=== PATIENT | female | born 1985 | race Caucasian/White ===

== ENCOUNTER 2016-12-09 17:04 | Emergency (ER) | payer OTHER ==
[2016-12-09 17:18] VITALS: BP 118/71; PULSE 88; RESP 17; TEMP 98.6
--- NOTE | 2016-12-09 17:36 | ED ---
URI HPI - General Chief Complaint: Upper Respiratory Infection Stated Complaint: Poss pneumonia Time Seen by Provider: 12/09/16 17:22 Source: patient, RN notes reviewed, old records reviewed Mode of arrival: wheelchair Limitations: no limitations - History of Present Illness Initial Comments: Patient is a 31-year-old female with chief complaint of left sided rib pain. Patient reports that she is concerned she possibly has pneumonia. She reports that she had similar pain as the stitches diagnosed approximately 2 months ago. She also reports that she's noticed a lump over her left breast. She reports that she'll be sitting there she'll have an occasional shooting pain to the lumbar the left breast which then causes the chest cavity dull ache afterwards. Patient reports that this will only occur for approximately 30 seconds. She denies any other symptoms. She denies any shortness of breath, dizziness, nausea or vomiting. She denies any sweating. She reports that she is a occasional smoker. She denies any history of family heart disease. She denies history of breast cancer. - Related Data Previous Rx's Medication Instructions Recorded Azithromycin [Zithromax Z-pack] 250 mg PO DIRECTED #6 tab 12/09/16 Allergies Allergy/AdvReac Type Severity Reaction Status Date / Time No Known Allergies Allergy Verified 12/09/16 17:44 Review of Systems ROS Statement: Those systems with pertinent positive or pertinent negative responses have been documented in the HPI. ROS Other: All systems not noted in ROS Statement are negative. Past Medical History Past Medical History: No Reported History History of Any Multi-Drug Resistant Organisms: None Reported Past Surgical History: No Surgical Hx Reported Past Psychological History: No Psychological Hx Reported Smoking Status: Current every day smoker Past Alcohol Use History: None Reported Past Drug Use History: None Reported General Exam Limitations: no limitations General appearance: alert, in no apparent distress Head exam: Present: atraumatic, normocephalic, normal inspection Eye exam: Present: normal appearance, PERRL, EOMI. Absent: scleral icterus, conjunctival injection, periorbital swelling ENT exam: Present: normal exam, mucous membranes moist Neck exam: Present: normal inspection. Absent: tenderness, meningismus, lymphadenopathy Respiratory exam: Present: normal lung sounds bilaterally, other (3cm lump of left breast. evidence of a 4 cm by 4 cm cyst of right breast at the 12 oclock position. ). Absent: respiratory distress, wheezes, rales, rhonchi, stridor Cardiovascular Exam: Present: regular rate, normal rhythm, normal heart sounds. Absent: systolic murmur, diastolic murmur, rubs, gallop, clicks GI/Abdominal exam: Present: soft, normal bowel sounds. Absent: distended, tenderness, guarding, rebound, rigid Extremities exam: Present: normal inspection, full ROM, normal capillary refill. Absent: tenderness, pedal edema, joint swelling, calf tenderness Left Lower Leg exam: Present: normal inspection, full ROM Ankle exam: Present: normal inspection, full ROM Foot/Toe exam: Present: normal inspection, tenderness (tender), swelling (mild swelling over 3-4 metatarsal) Neurovascular tendon exam: Present: no vascular compromise Gait: observed and normal (over the 3-5 metatarsal) Back exam: Present: normal inspection Course Vital Signs 12/09/16 17:15 Temperature 98.6 F Pulse Rate 88 Respiratory 17 Rate Blood Pressure 118/71 O2 Sat by Pulse 100 Oximetry Medical Decision Making - Medical Decision Making Patient is a 31 year old female with chief compliant of pain from left breast lump that will cause a shooting pain and a dull ache in her chest for 30 seconds. Patient ekg are normal without any abnormalities. CXR shows right upper lobe pneumonia. Given patients breast lump we will refer her to get a mammogram and follow up with PCP. Patient understands treatment plan and will comply. Return parameters discussed. Patient also will be placed on Zpak for cxr finding. 12/09/16 23:04 EKG shows normal sinus rhythm. There is evidence of possible left atrial enlargement. Ventricularly of 77 bpm. A 132 ms. QRS yazdanism 76 ms. QT/QTc is 412/466 multiple times. No evidence of ST elevation or T-wave inversion. No evidence of atrial or ventricular arrhythmias. - Radiology Data Radiology results: report reviewed CXR shows rounded pneumonia on right upper lobe. This is consistent with previous chest xray. Disposition Clinical Impression: Left sided chest pain, Breast lump in female, Pneumonia Disposition: HOME SELF-CARE Condition: Good Instructions: Breast Mass (ED) Additional Instructions: Patient advised that she needs follow-up with a primary care provider. Patient advised to return to the [facility] if any alarming signs or symptoms occur. Complete mammogram as directed. Prescriptions: Azithromycin [Zithromax Z-pack] 250 mg PO DIRECTED #6 tab Referrals: Ritu Gonzales MD [REFERRING] - 1-2 days Time of Disposition: 18:54
--- NOTE | 2016-12-09 18:16 | XR ---
EXAMINATION TYPE: XR chest 2V DATE OF EXAM: 12/09/2016 5:49 PM COMPARISON: Prior chest x-ray 25 October 2016 HISTORY: Chest pain TECHNIQUE: Frontal and lateral views of the chest are obtained on 3 images. FINDINGS: Similar appearance. Vague area of increased density is present in the right upper lobe. No other interval change. IMPRESSION: Difficult to exclude a right upper lobe pneumonia, follow-up is recommended.
== END 2016-12-09 19:07 | disposition home or self-care (01) ==
LOC: EC 17:04
DX: J18.9 Pneumonia, unspecified organism (principal); N60.01 Solitary cyst of right breast; M79.89 Other specified soft tissue disorders; F17.200 Nicotine dependence, unspecified, uncomplicated
CPT/HCPCS: 71020; 93005; 99283

== ENCOUNTER → 2016-12-15 | Outpatient (CLI) | payer OTHER ==
--- NOTE | 2016-12-15 10:10 | MM ---
Reason for exam: clinical finding. Physical Findings: Nurse did not find any significant physical abnormalities on exam. [facility] Diagnostic Mammo w CAD ANDREWS Bilateral CC and MLO view(s) were taken. There are scattered fibroglandular densities. Partially imaged mass upper right breast far posteriorly adjacent to chest wall. These results were verbally communicated with the patient and result sheet given to the patient on 12/15/16. ASSESSMENT: Incomplete: need additional imaging evaluation, BI-RAD 0 RECOMMENDATION: Ultrasound of both breasts. Manage patient on a clinical basis.
--- NOTE | 2016-12-15 10:14 | USB ---
Reason for exam: additional evaluation requested from abnormal screening. US Breast Limited BILAT Right breast ultrasound demonstrates a 4.5 x 1.7 x 3.6cm questionable lipoma for which a tissue biopsy is recommended. Left breast ultrasound demonstrates no cystic or solid lesion seen. These results were verbally communicated with the patient and result sheet given to the patient on 12/15/16. ASSESSMENT: Suspicious, BI-RAD 4 RECOMMENDATION: Surgical consultation of the right breast. Called Dr. Olivarez with mammographic findings and has scheduled an appointment for the patient for 12/18/16 at 10:[address] Sofia. PRELIMINARY REPORT CALLED AND FAXED TO DR. SOFIA ON 12/15/16 AT 300/TP.
== END | disposition home or self-care (01) ==
LOC: RADMAMWWP 08:38
PROVIDERS: ATTEND Emergency Medicine
DX: N63 Unspecified lump in breast (principal)
CPT/HCPCS: 76642; G0204

== ENCOUNTER 2018-01-14 23:30 | Outpatient (CLI) | payer OTHER ==
[2018-01-15 01:53] VITALS: BP 122/73; PULSE 96; RESP 16; TEMP 96.7
--- NOTE | 2018-01-27 16:46 | P.MSEPDOC ---
Presenting Problems - Arrival Data Date of Arrival on Unit: 01/14/18 Time of Arrival on Unit: 23:32 Mode of Transport: Wheelchair - Complaint OB-Reason for Admission/Chief Complaint: Possible Onset of Labor, Pain Comment: "uncomfortable," "pelvic pressure," lost her mucus membrane last week Medical History - Information : 4 Para: 3 Term: 1 : 2 Abortions: Spontaneous or Elective: 0 Number of Living Children: 3 - Gestational Age Gestational Age by SELENA (wks/days): 38 Weeks and 3 Days - History Complications: GBS+, Smoker Review of Systems - Review of Systems Constitutional: No problems Breast: No problems ENT: No problems Cardiovascular: No problems Respiratory: No problems Gastrointestinal: No problems Genitourinary: No problems Musculoskeletal: No problems Neurological: No problems Skin: No problems Vital Signs - Temperature Temperature: 96.7 F Temperature Source: Temporal Artery Scan - Pulse Right Pulse Rate: 96 Pulse Assessment Method: Pulse Oximetry - Respirations Respiratory Rate: 16 O2 Sat by Pulse Oximetry: 97 - Blood Pressure Right Arm Blood Pressure: 122/73 Blood Pressure Mean: 89 Blood Pressure Source: Automatic Cuff Medical Screen Scoring (Pre) - Cervical Exam Dilation: 4-7 cm = 2 Membranes: Intact - Uterine Contractions Frequency: > 5 minutes apart = 1 Duration: > 40 seconds = 2 Intensity: N/A - Maternal Vital Signs Maternal Temperature: N/A Maternal Blood Pressure: N/A Signs of Preeclampsia: N/A Maternal Respirations: N/A - Pain Assessment Pain Location and Character: Back, Abdomen Pain Scale Used: Numeric (1 - 10) Pain Intensity: 6 Pain Management Goal: 3 Pain Description: *Acute, Sore Pain Frequency: Intermittent Pain Duration: 4 Pain Duration Units: Hours Pain Behavior: Vocalization Pain Aggravating Factors: None Pharmacological Interventions: PRN Medication Non-Pharmacological Interventions: Position/Reposition - Assessment Baseline FHR: 130 Heart Rate - NICHD Category: Category I (Normal) = 0 NST: Reactive - Total Score Total Score (Pre): 5 - Level of Risk Level of Risk: Low (0-5) Physician Notification (Pre) - Physician Notified Physician Notified Date: 01/15/18 Physician Notified Time: 00:55 Physician/Practitioner Notifed:: Dr Shrestha - Notification Comment Comment: reported on c/o general discomfort, back pain, pelvic pressure, lost her mucus plug. reported on reactive fhts, rare irreg cntrx, vag exam, gbs +. orders to d/c home if pt desires, or she can stay another hour. pt desires to be d/c'd Disposition - Disposition OB Disposition: Discharge to home Discharge Date: 01/15/18 Discharge Time: 01:05 I agree with the RN Medical Screening Exam: Yes Risk & Benefit of care provided described in d/c instruction: Yes Diagnosis: FALSE LABOR, UNSPECIFIED
== END 2018-01-15 01:05 | disposition home or self-care (01) ==
LOC: FBPOP 23:30
PROVIDERS: ATTEND Obstetrics & Gynecology
DX: O47.9 False labor, unspecified (principal); Z3A.38 38 weeks gestation of pregnancy
CPT/HCPCS: 59025; G0463; 99213

== ENCOUNTER 2018-01-19 06:15 | Inpatient (IN) | payer OTHER ==
[2018-01-19] MEDS ORDERED: OXYTOCIN 10 UNIT/ML 1 ML VIAL IM PRN (06:35)
[2018-01-19] MEDS ORDERED: LIDOCAINE 1% (PF) 10 MG/ML (30 ML SDV) SQ PRN (06:35)
[2018-01-19] MEDS ORDERED: METHYLERGONOVINE 0.2 MG/ML 1 ML AMP IM PRN (06:35)
[2018-01-19] MEDS ORDERED: PENICILLIN G POTASSIUM 5,000,000 UNIT in DEXTROSE 5% IN WATER 100 ML IVPB STA ×2 (06:35)
[2018-01-19] MEDS ORDERED: TERBUTALINE 1 MG/ML VIAL SQ PRN (06:35)
[2018-01-19] MEDS ORDERED: CARBOPROST TROMETHAMINE 250 MCG/ML 1 ML AMP IM PRN (06:35)
[2018-01-19] MEDS ORDERED: LACTATED RINGERS 1,000 ML IV SCH (06:45)
[2018-01-19] MEDS ORDERED: OXYTOCIN 20 UNITS/1000 ML NS 1,000 ML IV SCH ×2 (06:45→10:30)
[2018-01-19 06:51] LABS: Basophils % (A) 0 %; Eosinophils # (A) 0.2 k/uL (0-0.7); Eosinophils % (A) 1 %; HCT 35.5 % (34.0-46.0); HGB 11.8 gm/dL (11.4-16.0); Lymphocytes % (A) 24 %; MCH 28.3 pg (25.0-35.0); MCHC 33.2 g/dL (31.0-37.0); MCV 85.3 fL (80.0-100.0); Mean Platelet Volume 8.7; Monocytes # (A) 0.8 k/uL (0-1.0); Monocytes % (A) 6 %; Neutrophils # (A) 8.5 k/uL (1.3-7.7); Neutrophils % (A) 67 %; Platelet Count 297 k/uL (150-450); RBC 4.17 m/uL (3.80-5.40); RDW 14.4 % (11.5-15.5); WBC 12.7 k/uL (3.8-10.6)
[2018-01-19 06:54] VITALS: BMI 32.9
[2018-01-19] MEDS ORDERED: BUTORPHANOL 1 MG/ML 1 ML VIAL IV PRN (08:29)
[2018-01-19] MEDS ORDERED: HYDROCORTISONE 2.5% RECTAL CREAM 30 GM TUBE RECTAL PRN (10:17)
[2018-01-19] MEDS ORDERED: diphenhydrAMINE 50 MG CAP PO PRN (10:17)
[2018-01-19] MEDS ORDERED: WITCH HAZEL 1 EACH MED..PAD TOPICAL PRN (10:17)
[2018-01-19] MEDS ORDERED: BENZOCAINE/MENTHOL SPRAY 1 GM/SPRAY AEROSOL TOPICAL PRN (10:17)
[2018-01-19] MEDS ORDERED: Acetaminophen-Codeine 300-30mg TAB PO PRN ×2 (10:17)
[2018-01-19] MEDS ORDERED: SIMETHICONE 80 MG CHEWABLE PO PRN (10:17)
[2018-01-19] MEDS ORDERED: diphenhydrAMINE 50 MG/ML 1 ML VIAL IVP PRN ×2 (10:17)
[2018-01-19] MEDS ORDERED: diphenhydrAMINE 25 MG CAP PO PRN (10:17)
[2018-01-19] MEDS ORDERED: ACETAMINOPHEN TAB 325 MG TAB PO PRN (10:17)
[2018-01-19] MEDS ORDERED: ZOLPIDEM 5 MG TAB PO PRN (10:17)
--- NOTE | 2018-01-19 10:23 | P.HPOB ---
History of Present Illness H&P Date: 01/19/18 Chief Complaint: 39+ weeks, elective induction The patient is a 32-year-old 4 para 1203 admitted at 39-0/7 weeks by 11 week ultrasound. She is admitted for elective induction of labor with all signs reassuring and relatively advanced cervical dilation. Her has been essentially uncomplicated. She does have an upper chest wall mass which is a probable lipoma which will be managed after the is completed. She also is group B strep positive. Obstetrical history: 4 para 11/10/2002 with 1 previous term delivery in a previous 35 and 33 week delivery. None of them were otherwise complicated. Current statistics are listed in history present illness. EDC of 01/26/2018 was established by 11 week ultrasound. Laboratory workup demonstrates a blood type of O+ with a negative antibody screen. Rubella status is immune. All other laboratory workup was within normal limits. One hour Glucola was normal and group B strep status is positive. Gynecologic history: Unremarkable with no history of any infections to include STDs. Review of Systems Review of systems is confined to history of present illness. Past Medical History Past Medical History: No Reported History History of Any Multi-Drug Resistant Organisms: None Reported Past Surgical History: No Surgical Hx Reported Past Psychological History: No Psychological Hx Reported Smoking Status: Current every day smoker Past Alcohol Use History: None Reported Past Drug Use History: None Reported - Past Family History Mother Family Medical History: Cancer, Diabetes Mellitus Medications and Allergies Home Medications Medication Instructions Recorded Confirmed Type No Known Home Medications [No 01/14/18 01/19/18 History Known Home Medications] Acetaminophen Tab [Tylenol Tab] 1,000 mg PO Q6HR PRN 01/19/18 01/19/18 History Allergies Allergy/AdvReac Type Severity Reaction Status Date / Time No Known Allergies Allergy Verified 01/19/18 06:33 Exam - Vital Signs Vital signs: Vital Signs Temp Pulse Resp BP Pulse Ox 01/19/18 10:10 97.2 F L 114 H 18 143/78 01/19/18 06:33 97.5 F L 86 18 121/71 98 Intake and Output 01/18/18 01/19/18 01/19/18 22:59 06:59 14:59 Other: Weight 89.811 kg In general, this is a well-developed, well-nourished white female in no acute distress. Her heart has a regular rhythm and rate without murmur. Her lungs are clear to auscultation bilaterally in all [place]. Her abdomen is gravid, nondistended, has normal active bowel sounds, soft, nontender, and without any palpable masses aside from uterine fundus. Her extremities are without any cyanosis, clubbing, or edema and are nontender to palpation bilaterally. Digital cervical examination demonstrates her cervix to approximate 6 cm dilated , 50% effaced, the vertex in presentation at -2 station. Artificial rupture of membranes is carried out demonstrating clear fluid. Results Result Diagrams: 01/19/18 06:30 Abnormal Lab Results - Last 24 Hours (Table) 01/19/18 Range/Units 06:30 WBC 12.7 H (3.8-10.6) k/uL Neutrophils # 8.5 H (1.3-7.7) k/uL Assessment and Plan (1) Term Current Visit: Yes Status: Acute Code(s): Z34.80 - ENCOUNTER FOR SUPRVSN OF NORMAL , UNSP TRIMESTER SNOMED Code(s): 91181935 Plan: The patient is admitted for elective induction of labor. She understands that there is a slightly increased risk for delivery under elective circumstances but has agreed to proceed. As result, she has had Pitocin augmentation started and undergone artificial rupture of membranes demonstrating clear fluid. She will have close maternal and surveillance and expectant management will be practiced. She is a good candidate for either IV or epidural analgesia if she so chooses.
--- NOTE | 2018-01-19 10:25 | P.PROBDLV ---
Vaginal Delivery Note - . Vaginal Delivery Note: The patient is a 32-year-old 4 para 1203 admitted at 39-0/7 weeks by good dating parameters perches admitted for an elective induction with a very favorable cervix and all signs reassuring. On labor and delivery, she had Pitocin started followed by artificial rupture of membranes demonstrating clear fluid. She made fairly quick progress through the remainder of labor to complete and pushed over the course of approximately 5 contractions she ultimately required an outlet vacuum extraction as heart tones were low and she became relatively uncooperative the with the delivery process. In either case, the was delivered by outlet vacuum extraction in the left occiput anterior position. The placenta was delivered spontaneously, intact, and grossly normal with a grossly normal relatively centrally inserted three- vessel cord. There were no lacerations of the perineum, vagina, or cervix. All sponge, instrument, and needle counts were correct. Estimated blood loss was approximately 200 mL. There were no complications. Both mother and infant are resting comfortably in recovery.
[2018-01-19] MEDS ORDERED: PENICILLIN G POTASSIUM 2,500,000 UNIT in DEXTROSE 5% IN WATER 100 ML IVPB SCH ×2 (11:00)
[2018-01-19] MEDS: IBUPROFEN 600 MG TAB PO PRN ×2 (14:49→20:45)
[2018-01-19] MEDS: SENNOSIDES-DOCUSATE SODIUM 1 EACH TAB PO SCH (20:46)
--- NOTE | 2018-01-20 08:45 | P.PNOBGVD ---
Subjective - Subjective Patient reports: Reports appetite normal, Reports voiding normally, Reports pain well controlled, Reports ambulating normally : doing well Objective - Latest Vital Signs Latest vital signs: Vital Signs Temp Pulse Resp BP Pulse Ox 01/20/18 00:00 98.0 F 83 16 121/80 97 01/19/18 20:00 97.5 F L 84 16 110/72 01/19/18 16:00 97.8 F 77 16 127/70 01/19/18 12:10 90 14 134/62 01/19/18 11:40 94 14 137/64 01/19/18 11:10 87 14 107/69 01/19/18 10:55 87 14 107/69 01/19/18 10:40 96 16 114/76 01/19/18 10:25 96 16 110/80 01/19/18 10:10 97.2 F L 114 H 18 143/78 - Exam Lungs: bilateral: normal Chest: Normal S1, Normal S2 Extremities: Present: normal Abdomen: Present: normal appearance, soft Uterus: Present: normal, firm (The uterine fundus as tonic and nontender on the umbilicus.) Assessment and Plan (1) Term Current Visit: Yes Status: Acute Code(s): Z34.80 - ENCOUNTER FOR SUPRVSN OF NORMAL , UNSP TRIMESTER SNOMED Code(s): 99427191 (2) Vacuum extractor delivery, delivered Current Visit: Yes Status: Acute Code(s): O66.5 - ATTEMPTED APPLICATION OF VACUUM EXTRACTOR AND FORCEPS SNOMED Code(s): 646084946 Plan: Continue routine care. The is to remain in the hospital for 48 hours pending cultures as she did not receive antibiotics for long enough and advance of delivery under a positive group B strep situation.
[2018-01-20] MEDS: SENNOSIDES-DOCUSATE SODIUM 1 EACH TAB PO SCH ×2 (09:26→20:16)
[2018-01-21 01:19] VITALS: PULSE 72
--- NOTE | 2018-01-21 08:30 | P.DS ---
Providers Date of admission: 01/19/18 06:22 Expected date of discharge: 01/21/18 Attending physician: Yuniel Royal Primary care physician: Stated None - Discharge Diagnosis(es) (1) Term Current Visit: Yes Status: Acute (2) Vacuum extractor delivery, delivered Current Visit: Yes Status: Acute Hospital Course: The patient is a 32-year-old 4 para 1203 admitted at 39-0/7 weeks by good dating parameters. The patient is admitted for elective induction of labor with a very favorable cervix. Her was uncomplicated though she is group B strep positive. As result, she had antibiotic prophylaxis started upon admission. On labor and delivery she had Pitocin started followed by artificial rupture of membranes. She made rapid progress to complete and then, with the fetus nearly , failed to push adequately. A vacuum extractor was applied at the outlet station and she was delivered by vacuum extraction of a viable 7 lbs. 15 oz. baby girl with Apgars of 8 at 1 minute and 9 at 5 minutes. Her course was unremarkable with vital signs remaining stable and her temperature was afebrile throughout. She was deemed stable for discharge by day #2 and was discharged home to follow-up in the office in 6 weeks' time routinely. Discharge instructions included calling for any significantly increased bleeding or foul-smelling lochia, significantly increased fever or abdominal pain, perineal complaints, breast complaints, or anything else that concerned her. She is additionally instructed to have nothing in the vagina for at least 6 weeks time to include intercourse. She understood her instructions and agrees to follow up as noted above. Discharge medications included only [id number] analgesic pain medications. Maternal blood type is O+ and rubella status is immune. Procedures: #1. Pitocin induction #2. Artificial rupture of membranes #3. Outlet vacuum extraction Patient Condition at Discharge: Good Plan - Discharge Summary New Discharge Prescriptions: No Action Acetaminophen Tab [Tylenol Tab] 1,000 mg PO Q6HR PRN PRN Reason: Pain Discharge Medication List Acetaminophen Tab [Tylenol Tab] 1,000 mg PO Q6HR PRN 01/19/18 [History] Follow up Appointment(s)/Referral(s): Yuniel Royal MD [STAFF PHYSICIAN] - 6 Weeks Discharge Disposition: HOME SELF-CARE
[2018-01-21 10:10] VITALS: BP 115/65; RESP 16; TEMP 97.6
== END 2018-01-21 13:00 | disposition home or self-care (01) | DRG 775 ==
LOC: 4FBP 06:22
PROVIDERS: ADMIT Obstetrics & Gynecology; ATTEND Obstetrics & Gynecology
PROC: 3E033VJ Introduction of Other Hormone into Peripheral Vein, Percutaneous Approach (ICD-10-PCS; principal; 2018-01-19)
PROC: 10D07Z6 Extraction of Products of Conception, Vacuum, Via Natural or Artificial Opening (ICD-10-PCS; principal; 2018-01-19)
PROC: 10907ZC Drainage of Amniotic Fluid, Therapeutic from Products of Conception, Via Natural or Artificial Opening (ICD-10-PCS; principal; 2018-01-19)
DX: O99.824 Streptococcus B carrier state complicating childbirth (principal); F17.200 Nicotine dependence, unspecified, uncomplicated; Z37.0 Single live birth; Z3A.39 39 weeks gestation of pregnancy; O99.334 Smoking (tobacco) complicating childbirth; O76 Abnormality in fetal heart rate and rhythm complicating labor and delivery
CPT/HCPCS: 85025; 88307